=== PATIENT | female | born 1990 | race Two or more races ===

== ENCOUNTER 2017-11-19 22:26 | Emergency (ER) | payer OTHER ==
[~2017-11-19] VITALS: Ht 177.8 cm; Wt 83.9 kg
[~2017-11-19 22:26] MED LIST: AMOXICILLIN500 MG PO; DIFLUCAN150 MG PO; NOHOMEMEDS; PRENATAL TABLE1 EAC3 PO; PROZAC20 MG PO; RANITIDINE HCL300 MG PO; ZANTAC150 MG PO
[2017-11-19] MEDS ORDERED: MOTRIN600 MG PO (23:54)
[2017-11-19] MEDS ORDERED: AMOXICILLIN500 M1 PO (23:54)
[2017-11-20 00:38] VITALS: BP 00/0
== END 2017-11-20 00:40 | disposition home or self-care (01) ==
LOC: EME 22:26
DX: J03.90 Acute tonsillitis, unspecified (principal); J32.9 Chronic sinusitis, unspecified
CPT/HCPCS: 87651 90; 99281; 99284

== ENCOUNTER 2018-02-01 23:49 | Emergency (ER) | payer OTHER ==
[~2018-02-01] VITALS: Ht 177.8 cm; Wt 82.5 kg
[~2018-02-01 23:49] MED LIST changes: +AMOXICILLIN500 M1 PO; +MOTRIN600 MG PO
[2018-02-01 23:51] VITALS: BP 128/85
[2018-02-02] MEDS ORDERED: NORCO 5/3251 TABLET PO (00:46)
== END 2018-02-02 01:04 | disposition home or self-care (01) ==
LOC: EME 23:49
DX: S92.532A Displaced fracture of distal phalanx of left lesser toe(s), initial encounter for closed fracture (principal); W20.8XXA Other cause of strike by thrown, projected or falling object, initial encounter; Y99.0 Civilian activity done for income or pay
CPT/HCPCS: 99281; 99284

== ENCOUNTER 2018-02-15 19:40 | Emergency (ER) | payer OTHER ==
[~2018-02-15] VITALS: Ht 177.8 cm; Wt 84.1 kg
[~2018-02-15 19:40] MED LIST changes: +NORCO 5/3251 TABLET PO
[2018-02-15] MEDS ORDERED: ULTRAM50 MG PO (22:17)
[2018-02-15 22:33] VITALS: BP 101/80
== END 2018-02-15 22:33 | disposition home or self-care (01) ==
LOC: EME 19:40 → EXP 19:40
DX: M79.672 Pain in left foot (principal); S92.502D Displaced unspecified fracture of left lesser toe(s), subsequent encounter for fracture with routine healing
CPT/HCPCS: 99281; 99283